=== PATIENT | female | born 1965 | race African-American/Black ===

== ENCOUNTER 2020-06-29 23:31 | Observation (INO) | payer MEDICARE ==
[2020-06-30] MEDS ORDERED: MELO15TA23 PO (03:05)
[2020-06-30] MEDS ORDERED: MAGN400C PO (03:05)
[2020-06-30] MEDS ORDERED: CALC-31 PO (03:05)
[2020-06-30] MEDS ORDERED: CYAN500T17 PO (03:05)
[2020-06-30] MEDS ORDERED: OXYB5TAB10 PO (03:05)
[2020-06-30] MEDS ORDERED: GABA600T7 PO (03:05)
[2020-06-30] MEDS ORDERED: CRAN200C2 PO (03:05)
[2020-06-30] MEDS ORDERED: FING0.5C3 PO (03:05)
[2020-06-30] MEDS ORDERED: ZINC30CA PO (03:05)
[2020-06-30] MEDS ORDERED: BACL10TA PO (03:05)
[2020-06-30] MEDS ORDERED: FERR325T14 PO (03:05)
[2020-06-30 03:30] VITALS: BP 165/88
[2020-06-30 07:00] VITALS: BP 130/71
[2020-06-30] MEDS ORDERED: CIPR500T94 PO (09:59)
[2020-06-30] MEDS ORDERED: cefTRIAXone IV Push 1 GM VIAL. IVP SCH (10:00)
[2020-06-30] MEDS ORDERED: ZINC SULFATE 220 MG CAPSULE. PO SCH (10:00)
[2020-06-30] MEDS ORDERED: OXYBUTYNIN CHLORIDE 5 MG TABLET PO SCH (10:00)
[2020-06-30] MEDS ORDERED: CALCIUM CARB/VIT D3 500/200 TABLET. PO SCH (10:00)
[2020-06-30] MEDS ORDERED: GABAPENTIN 300 MG CAPSULE. PO SCH (10:00)
[2020-06-30] MEDS ORDERED: FERROUS SULFATE 325 MG TABLET. PO SCH (10:00)
--- NOTE | 2020-06-30 10:00 | SNU/HH DC ---
DISCHARGE WITH HOME HEALTH DISCHARGE INFORMATION: Discharge Date: Jun 30, 2020 Final Diagnosis: Sepsis UTI MS weakness, Condition on Discharge: Stable CODE STATUS: Code Status: Full HOME HEALTH: Face to Face: I certify this patient is under my care and that I, or a nurse practitioner or physician's accounting assistant working with me, had a face to face encounter that meets the physician face to face encounter requirements with this patient on 06/30 Medical Complications: Other Mcc For: Medication Management RN For Eval/Treatment: Yes Physical Therapy For: Evalulation/Treatment Occupational Therapy For: Evaluation/Treatment Pt Meets Homebound Status: Poor coordination w/ amb., Unsteady balance w/ amb, FOLLOW-UP: Follow up with: primary care 1 week CERTIFICATION STATEMENT: Certification Statement: Certification Statement: Based on the above finding, I certify that this patient is confined to the home and needs intermittent senior care care, physical therapy and/or speech therapy, or continues to need occupational therapy.~ This patient is under my care, and I have initiated the establishment of the plan of care.~ This patient will be followed by myself or a community physician who will periodically review the plan of care. Home Meds Active Scripts Ciprofloxacin Hcl (CIPRO) 500 Mg Tablet, 1 TAB PO BID for UTI for 7 Days, #14 TAB 0 Refills Prov:STARLA SWIFT MD 06/30/20 Reported Medications Zinc Gluconate-Zinc Picolinate (ZINC) 30 Mg Capsule, 30 MG PO DAILY for replacement, CAP 06/30/20 Calcium Carbonate/Vitamin D3 (CALCIUM 500 + D TABLET) 1 Each Tablet, 1 TAB PO DAILY for replacement for 30 Days, #30 TAB 0 Refills 06/30/20 Magnesium Oxide (MAGNESIUM) 400 Mg Capsule, 1 CAP PO DAILY for replacement for 30 Days, #30 CAP 0 Refills 06/30/20 Oxybutynin Chloride (OXYBUTYNIN CHLORIDE) 5 Mg Tablet, 5 MG PO BID for muscle spasms, TAB 06/30/20 Cyanocobalamin (Vitamin B-12) (B-12) 500 Mcg Tablet, 500 MCG PO DAILY for replacement, TAB 06/30/20 Cranberry Extract (CRANBERRY) 200 Mg Capsule, 200 MG PO DAILY for UTIs, CAP 06/30/20 Meloxicam (MELOXICAM) 15 Mg Tablet, 15 MG PO DAILY for arthritis, TAB 06/30/20 Ferrous Sulfate (FERROUS SULFATE) 325 Mg Tablet, 325 MG PO DAILY for anemia, TAB 06/30/20 Fingolimod Hcl (GILENYA) 0.5 Mg Capsule, 0.5 MG PO DAILY for MS, CAP 06/30/20 Gabapentin (GABAPENTIN) 600 Mg Tablet, 600 MG PO BID for NEUROGENIC PAIN, TAB 06/30/20 Baclofen (BACLOFEN) 10 Mg Tablet, 10 MG PO TID for MUSCLE RELAXER, #30 TAB 0 Refills 06/30/20 STARLA SWIFT MD Jun 30, 2020 10:00
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
[2020-06-30 10:44] VITALS: BP 139/78
[2020-06-30] MEDS ORDERED: ENOXAPARIN 40 MG/0.4 ML SYRINGE. SQ SCH (11:00)
[2020-06-30] MEDS ORDERED: BACLOFEN 10 MG TABLET. PO SCH (14:00)
[2020-06-30 15:00] VITALS: BP 144/70
--- NOTE | 2020-06-30 17:12 | NUR ---
SW following. Reviewed chart and discussed with RN. Pt from home with spouse. Pt to discharge home today with HH. AMANDO completed Patient Choice of Vendor form. AMANDO phoned and faxed referral to [facility], , (fax) as they take pt's insurance. AMANDO spoke with intake to confirm that referral was received. No further SW needs at this time. Addendum: 07/02/20 at 1005 by SINDY GOEL Spoke with Kavita from [employer] who stated she has been having difficulty reaching pt by phone. [employer] stated they will continue to attempt to reach pt to initiate HH services.
--- NOTE | 2020-06-30 18:00 | NUR ---
Discharge teaching written and verbal. Reviewed medication, follow-up, UTI, covid, weakness, fall precautions, ect. Patient verbalized understanding. Patient assisted off of unit via wheelchair accompanied by GEOTHERMAL TECHNICIAN. Patient picked patient at front door.
[2020-07-01] MEDS ORDERED: MELOXICAM 7.5 MG TABLET PO SCH (09:00)
[2020-07-01] MEDS ORDERED: MAGNESIUM OXIDE 400 MG TABLET PO SCH (09:00)
[2020-07-01] MEDS ORDERED: NON FORMULARY ITEM (Cranberry Extract (Cranberry) 200 MG) PO SCH (09:00)
[2020-07-01] MEDS ORDERED: FINGOLIMOD HCL 0.5 MG PO SCH (09:00)
[2020-07-01] MEDS ORDERED: CYANOCOBALAMIN (VITAMIN B-12) 1,000 MCG TABLET. PO SCH (09:00)
== END 2020-06-30 17:59 | disposition home health service (06) ==
LOC: INTOOBSV 06-30 02:15 → 6 SOUTH 06-30 02:15
PROVIDERS: ADMIT Internal Medicine; ATTEND Internal Medicine
DX: A41.9 Sepsis, unspecified organism (principal); G35 Multiple sclerosis; N39.0 Urinary tract infection, site not specified; G93.40 Encephalopathy, unspecified; R53.1 Weakness
CPT/HCPCS: 96372; 96374; 97161; 97166; G0378; G0379; J0696; J1650